=== PATIENT | female | born 1985 | race American Indian/Alaskan Native ===

== ENCOUNTER 2017-03-25 08:17 | Day surgery (SDC) | payer BC ==
[2017-03-24 15:29] VITALS: BMI 20.7
[2017-03-25 08:46] VITALS: O2SAT 100
[2017-03-25] MEDS ORDERED: Lactated Ringer's 1,000 ML IV ONE (09:05)
[2017-03-25 09:18] LABS: HEMOGLOBIN 11.2 g/dL (12.0-16.0); MEAN CELL VOLUME 84.5 fl (81.0-99.0); MEAN CORPUSCULAR HEMOGLOBIN 26.8 pg (27.0-31.0); MEAN CORPUSCULAR HGB CONC 31.7 g/dL (33.0-37.0); RBC 4.17 Mil/uL (3.80-5.20); RED CELL DISTRIBUTION WIDTH 13.4 % (11.5-14.5); WHITE BLOOD COUNT 2.6 K/uL (4.8-10.8)
[2017-03-25] MEDS ORDERED: Silver Nitrate Topical - Stick ONE (10:21)
[2017-03-25] MEDS ORDERED: Ferric Subsulfate Sol(60 mL) ONE (10:21)
[2017-03-25] MEDS ORDERED: Strong Iodine Topical Sol. 5%-10% ONE (10:21)
[2017-03-25] MEDS ORDERED: ACETIC ACID 3% 30 ML LIQUID MC ONE (10:24)
[2017-03-25] MEDS ORDERED: Propofol 10 mg/ml Inj (20 ML) ONE (10:40)
[2017-03-25] MEDS ORDERED: ePHEDrine 50 mg/ml Inj ONE (10:41)
[2017-03-25] MEDS ORDERED: Midazolam 2 MG/2 ML VIAL ONE (10:41)
[2017-03-25] MEDS ORDERED: Succinylcholine 200 mg/10 ml Inj IV ONE (10:42)
[2017-03-25] MEDS ORDERED: Lidocaine 4% (Laryng-O-Jet) Kit MM ONE (10:42)
[2017-03-25] MEDS ORDERED: Dexamethasone 4 mg/1 ml ONE (11:04)
[2017-03-25] MEDS ORDERED: Strong Iodine Topical Sol. 5%-10% TOP ONE (11:10)
[2017-03-25] MEDS ORDERED: Ferric Subsulfate Sol(60 mL) PO ONE (11:10)
--- NOTE | 2017-03-25 11:19 | PCM.SURG1 ---
Surgeon's Initial Post Op Note - Surgeon's Notes Surgeon: Issa Summers DO Research Staff Member: none Type of Anesthesia: General Endo Anesthesia Administered By: Dr Beth Pre-Operative Diagnosis: Cervical dysplasia Operative Findings: cervix closed; decreased uptake 5-6 o'clock Post-Operative Diagnosis: same Operation Performed: LEEP procedure/ecc Specimen/Specimens Removed: Leep biopsy/ECC Estimated Blood Loss: EBL {In ML}: 0 Blood Products Given: N/A Drains Used: No Drains Post-Op Condition: Good Date of Surgery/Procedure: 03/25/17 Time of Surgery/Procedure: 11:00
[2017-03-25] MEDS ORDERED: Acetaminophen-Codeine 300/30 mg Tab PO PRN (11:23)
[2017-03-25] MEDS ORDERED: Lactated Ringer's 1,000 ML IV SCH ×2 (11:30→11:45)
[2017-03-25] MEDS ORDERED: HYDROmorphone 0.5 mg/0.5 ml ISec IVP PRN (11:37)
[2017-03-25 12:47] VITALS: RESP 18
[2017-03-25 13:32] VITALS: BP 122/78; PULSE 75; TEMP 97.6
--- NOTE | 2017-03-31 07:20 | OP ---
PROCEDURE DATE: 03/25/2017 PREOPERATIVE DIAGNOSIS: Cervical dysplasia. POSTOPERATIVE DIAGNOSIS: Cervical dysplasia. PROCEDURE: LEEP procedure with endocervical curetting. SURGEON: Ayan Summers MD. TYPE OF ANESTHESIA: General endotracheal. ANESTHESIA ADMINISTERED BY: Dr. Chioma Beth. OPERATIVE FINDINGS: Cervix is closed. Decreased uptake of Russell's solution at 5 and 6 o'clock position. SPECIMEN: Included deep cone biopsy and endocervical curetting. BLOOD LOSS: Zero. DRAINS: None. BLOOD PRODUCTS GIVEN: None. POSTOPERATIVE CONDITION: Good. DESCRIPTION OF PROCEDURE: Silvio was brought to the operating room, placed in supine position. After successful induction of general anesthesia, compression boots were placed on both lower extremities. She was placed in a lithotomy position. She was then draped and prepped in the usual sterile manner. Catheter was used to drain the bladder of its contents. A weighted speculum was placed in the posterior fornix of the vagina, right angle retractor in the anterior fornix of the vagina to visualize the cervix. Cervix was visualized. A rubber covered duckbill speculum was placed in the vagina to visualize the cervix. Cervix was grasped at 2 o'clock position using a rubber covered single-tooth tenaculum. Lugol solution was applied and decreased uptake was noted at the 5 to 6 o'clock position. Thereafter, 15 x 12 mm size loop electrode was used to obtain specimen, which included the area of decreased uptake. The specimen was removed and sent to pathology lab. Endocervical curetting was performed using Kevorkian curette. All equipments were removed and accounted for. Monsel solution was applied at the cervix. There was no bleeding noted. All equipments were accounted for. She was successfully reversed from general anesthesia and brought to the recovery room in stable condition. She is scheduled to follow up in the office in 2-3 weeks for postop care and to discuss pathology reports. Ayan Summers DO
== END 2017-03-25 13:40 | disposition home or self-care (01) ==
LOC: H.OPSURG 08:17
PROVIDERS: ATTEND Obstetrics & Gynecology
DX: N87.1 Moderate cervical dysplasia (principal)
CPT/HCPCS: 36415; 57522; 85027; 86850; 86900; 88305; 88307; J0330; J0690; J1100; J2001; J2250; J2405; J2704; J3010; J7030; J7120